=== PATIENT | male | born 2005 | race Caucasian/White ===

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

== ENCOUNTER 2024-06-15 00:48 | Emergency (ER) | payer OTHER, SELFPAY ==
--- NOTE | ~2024-06-15 | XR_ITS ---
Left Hand Technique: PA, oblique, and lateral views were obtained. Clinical History: Laceration, foreign body Findings: No acute fracture or dislocation is seen. Osseous alignment is anatomic. Joint spaces are p reserved. Soft tissues are unremarkable. Impression: Unremarkable left hand. Reviewed, dictated and finalized at location . RMATORY ATTENDANT Impression: Unremarkable left hand.
--- OUTSIDE RECORDS SUMMARY | 2024-06-15 00:50 | XMS_ITS | Clinical Summary ---
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 Gender Identity Not on file Sexual Orientation Not on file Plan of Treatment Health Maintenance Due Date Last Done Comments Annual Physical 2007 Meningococcal B Vaccine (1 o f 2 - Standard) 2020 Hepatitis C 2022 DTaP, Tdap and Td Vaccines ( 1 - Tdap) 2023 Hepatitis B Vaccines (1 of 3 - 19+ 3-dose series) 2023 COVID-19 Vaccine (2 - 2023-2 5 season) 2023 09/10/2020 Influenza Adult (#1) 2024 HPV Vaccines Completed 06/29/2018, 06/23/2017 Meningococcal Vaccine Aged Out No diana daniela eligible based on patient's age to complete this topic Pneumococcal Vaccine: Pediatrics (0 to 5 Years) and At-Risk Patients (6 to 64 Years) Aged Out No longer eligible b ased on patient's age to complete this topic RSV Immunizations Under 20 Months Aged Out No longer eligible b ased on patient's age to complete this topic Insurance [employer] Care Teams Medical Lab Director Relationship Specialty Start Date End Date Maryana Serrano MD [address] [place] [id number] PCP - General PEDIATRICS 01/07/20
--- OUTSIDE RECORDS SUMMARY | 2024-06-15 00:51 | XMS_ITS | Data Portability ---
Author Organization [facility], [address] [facility] ([place]) Address [address] [place] [address] Care Team Providers Care Customer Professional Name Role Phone TARIQ ADAM Primary Care Provider [phone] TARIQ ADAM Referring Provider Assessment Encounter Date Assessment Date Assessment LastModified by Organization Details LastModified Time 10/17/2023 10/17/2023 SUBJECTIVE: The patient presents with concerns about a right nasal lesion. The patient states that he has had this for several years, and it has never really gone away. It does not bleed, drain, or have any other associated symptoms. He does not have any other lesions of this kind. Patient history from today's date has been reviewed, signed, and scanned. All updates have been added to the chart. Please refer to this form for review of the past medical history, family history, surgical history, social history, and review of systems. PHYSICAL EXAM: CONST: Alert and oriented. Looks well, no acute distress. EYES: No icterus. ENT: Oral mucosa pink and moist. On examination, the patient has a 2 mm verrucous appearing lesion of the inferior right naris. RESP: Breathing appears normal. No use of accessory muscles. CV: Extremities are warm and well perfused. GI: Abdomen non-distended. MSK: Head: Atraumatic. Normocephalic. No significant edema normal range of motion. SKIN: No jaundice. No rashes or pruritus on exposed areas. PSYCH: Appropriate mood and affect. NEURO: No speech difficulty. Reviewed pertinent diagnostic tests, lab work, and imaging. These were reviewed with the patient. ASSESSMENT/PLAN: The patient has what I believe to be a verruca vulgaris of the right inferior nasal area. I discussed with him shaving this off and sending it for pathology, and I will cauterize the base which will hopefully resolve the issue. This will be done under local anesthesia in the clinic. I explained to him that he will have a small wound that needs to heal in, and he voiced understanding and was agreeable. We will get him scheduled for this at the earliest opportunity. I appreciate the opportunity to participate in the care of your patients. Should you have any questions or concerns about this evaluation or management please feel free to call my office to discuss them with me. I will be sure to keep you informed of any subsequent developments in care. [facility] [email or web address] Not available 10/17/2023 21:50:40 11/08/2023 11/08/2023 The patient presents for shave biopsy and C&D of lesion at Right ala base. The patient was numbed using 1% lidocaine with epinephrine. Once adequate anesthesia was obtained, the skin was was prepped with Betadine. A tangential shave was taken of the area of concern. Hemostasis was obtained the low power cautery and bacitracin was placed. The patient tolerated the procedure well. The patient was instructed to cleanse the area normally after 24 hrs, but do not soak. The area(s) should be washed daily and vaseline (or equivalent) ointment should be placed to keep this moisturized and prevent a scab from forming. This will heal in and re-epithelialize in 1-4 weeks depending on the depth of the shave. The patient should call with questions or concerns. We will contact him with the pathology results. [email or web address] Not available 11/08/2023 15:58:14 Plan of Treatment Reminders Order Date Submit Date Provider Last Modified By Organization Details Last Modified Time Details Appointments None record ed. Lab None record ed. Referral None record ed. Procedures None record ed. Surgeries None record ed. Imaging None record ed. Medication Orders None record ed. Patient TargetsNo targets recorded. Patient InstructionsNo instructions recorded. Reason for Referral None Reported. Results Created Date Observation Date Name Description Value Unit Range Abnormal Flag Note LastModifiedBy Organization Detail LastModifiedTime 11/08/1911/10/2023 surgi benedicto patho logy study tissue exam biopsy [facility] [address],[place] [address] Ph. Scott Kimball MD, PhD, Medic al Direc tor MICHAELA MAGANA MD Patie nt: YANDY PRINCEWALDEMAR e ID: [id number] Repor t Statu s: Final :1 2003 Case #: [id number] Age: 18 Y Gende r: M Date Colle cted: 11/07 MRN # : [id number] Date Recei chapo: 11/08 Repor jeanne Date: 11/09 FINAL DIAGN OSIS: Skin, right nasal , excis ion: - Sebor rheic kerat osis, infla med and traum atize d ICD-1 0: L82.0 Elect barbara claudio Verif ied by Red Gonzalez MD Elect barbara Signumberto turadia 11/09 17:03 SPECI MEN SOURC E: Skin, right nasal , excis ion GROSS DESCR IPTIO N: The speci men conta iner( s) and requi sitio n have the same patie nt name. Recei chapo in 10% neutr al buffe red forma sixto for forma sixto-f ixed paraf fin-e mbedd ed secti ons label ed exci chad right nasal lesio n is an unori ented 0.4 x 0.2 cm fragm ent of white -meza skin excis ed to a depth of 0.1 cm. A 0.2 x 0.2 x 0.1 cm eleva jeanne brown -meza lesio n is prese nt on the skin surfa ce and is adjac ent to the yesenia n. The speci men is inked , bisec jeanne, and entir tavon submi tted for histo logic study in one casse tte. CLINI BENEDICTO INFOR MATIO N: Skin biops y, right nasal , lesio n. Not Available Hi Only - [facility] Laboratory [facility] [address], [address], 11/10/2023 18:06:22 Result Notes None recorded. Problems Name Problem SNOMED Code Status Onset Date Resolution Date Notes Provider Name and Address Organization Details Recorded Time Lesion of skin of nose 3348666041175 9103 Active 2023 Pema Garcia [facility] 4 11:44:23 Inflamed seborrheic keratosis 530939386 Active 2023 Pema Garcia [facility] 4 09:40:40 Problem Notes None recorded. Medical Equipment None Reported. Medications Name Sig Start Date Stop Date Status Note LastModified by Organization Details LastModified Time mupirocin 2 % topical ointment APPLY SMALL AMOUNT TOPICALLY TO THE AFFECTED AREA 2 TO 3 TIMES DAILY DIRECTED active Not Available Not Available Not Available Vitals Date Recorded Body height Provider Name an d Address Organization Details Last Updated DateTime 10/17/2023 [address] [facility] 10/17/2023 15:38:18 Date Recorded Body height Body mass index (BMI) Body mass index (BMI) Percentile per age and sex Body weight Provider Name and Address Organization Details Last Updated DateTime 11/08/2023 189.23 cm 19.5 kg/m2 9 % 57623.87 g Radha Correia [facility] 11/08/2023 15:43:20 Social History Question Answer Notes LastModified by Organizat ion Details LastModified Time Do You Have An Advance Directive? No [email or web address] Information not available 10/10/2023 What Is Your Level Of Alcohol Consumption? Occasional [email or web address] Information not available 10/10/2023 How Many Times Per Week Do You Consume Alcohol? Less Than 1 Time Per Week [email or web address] Information not available 10/10/2023 What Is Your Level Of Caffeine Consumption? Occasional [email or web address] Information not available 10/10/2023 Are You Currently Employed? Yes [email or web address] Information not available 10/10/2023 What Is Your Occupation? [employer] [email or web address] Information not available 10/10/2023 How Many Times Per Week Do You Exercise? 3-4 Times Per Week [email or web address] Information not available 10/10/2023 Do You Have A Medical Power Of Hotel Assistant General Manager? No [email or web address] Information not available 10/10/2023 What Was The Date Of Your Most Recent Tobacco Screening? 10/17/2023 [email or web address] Information not available 10/10/2023 What Is Your Relationship Status? Single [email or web address] Information not available 10/10/2023 Do You Use Any Illicit Or Recreational Drugs? No [email or web address] Information not available 10/10/2023 Sex: Unknown Functional Status Question Answer Note LastModified by Organization D etails LastModified Time What is your exercise level? Heavy [email or web address] Information not available 10/10/2023 Mental Status None recorded. Family History Relationship Description Onset Age of this Age Resolved Age Notes LastModified by Organization Details LastModified Time Father Asthma [email or web address] Not available 23:17:26 Paternal Grandmother Chronic obstructive pulmonary disease [email or web address] Not available 2023 23:17:26 Paternal Grandfather Diabetes mellitus [email or web address] Not available 2023 23:17:26 Paternal Grandfather Hypercholest erolemia [email or web address] Not available 2023 23:17:26 Maternal Grandmother Hypertensive disorder [email or web address] Not available 2023 23:17:26 Medical History Condition Response Anxiety Disorder N Diabetes N Bleeding Disorder N Attention-deficit Hyperactivity Disorder N High Blood Pressure N Arthritis N Hyperlipidemia N Cancer N Thyroid Problems N Stroke N COPD N Depression N Asthma Y Seizures N Anemia N Heart Disease N Fibromyalgia N Osteoporosis N Kidney Disease N Past Encounters Encounter ID Performer Location Encounter Start Date Encounter Closed Date Diagnosis/Indication Diagnosis SNOMED-CT Code Diagnosis ICD10 Code Diagnosis Note [id number] Casie Murillo MD [address] [facility] ([place]) [address] [place] [phone] 10/17/2023 15:12:55 10/21/2023 06:47:08 Lesion of skin of nose 7373377509 8811281 J34.89 [id number] Casie Murillo MD [facility] ([place]) [address] [place] [address] 11/08/2023 15:19:09 11/08/2023 16:24:34 Inflamed seborrheic keratosis 709034746 L82.0 Health Concerns Section Related Observation LastModified by Organization Landen durán LastModified Time None Recorded Concern Status LastModified by Organization Details LastModified Time None Recorded Advance Directives Directive N: Payers Encounter Date Sequence Insurance Name Policy Number Policy Penaloza Covered Member ID Penaloza Member ID Guarantor Name 10/17/2023 1 [employer] [facility] [employer] [id number] Ray Beard [id number] CELINA Beard 11/08/2023 1 [employer] [facility] [employer] [id number] Ray Beard [id number] CELINA Beard
[2024-06-15 01:06] VITALS: BP 166/85; PULSE 91; RESP 14; TEMP 36.6; O2SAT 98
[2024-06-15 04:00] VITALS: BP 154/85; PULSE 88; RESP 15; O2SAT 99
--- OUTSIDE RECORDS SUMMARY | 2024-06-15 04:44 | XMS_ITS | Clinical Summary ---
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
--- NOTE | 2024-06-15 05:18 | ED_ITS ---
HPI - General Adult General Chief complaint: Skin/Abscess/Foreign Body Stated complaint: knocked over a glass and cut hand Time Seen by Provider: 06/15/24 04:38 History of Present Illness HPI narrative: Patient is a 19-year-old male who presents to the emergency department this evening complaining of left hand laceration. Patient states that he accidentally knocked a glass with his left hand which cut his hand. Patient has 2 superficial lacerations at the base of the thumb and base of the index finger of the left hand. States that he is in college and is up-to-date on all immunizations. Denies any additional symptoms or concerns at this time. Related Data Allergies Allergy/AdvReac Type Severity Reaction Status Date / Time No Known Allergies Allergy Verified 06/15/24 00:49 Review of Systems Review of Systems: All systems are reviewed and are negative unless stated otherwise in the HPI. Exam Narrative: General: Alert, awake, afebrile, in no acute distress. HEENT: PERRL, no rhinorrhea, no post nasal drip, oropharynx clear. Neck: Trachea midline, no JVD, no lymphadenopathy. Cardiovascular: Regular rate and rhythm, no murmurs, rubs or gallops, no peripheral edema. Respiratory: Clear to auscultation bilaterally, no tachypnea, no wheezing, no rhonchi, no rubs, no respiratory distress. Abdomen: Soft, nontender, nondistended, no rebound, no guarding, no peritoneal signs. Musculoskeletal: No joint swelling or deformity, normal muscle tone. Skin: 2 superficial lacerations to the palm of the left hand 1 at the base of the index finger measuring 2 cm and 1 at the base of the thumb measuring 1 cm. Psychiatric: Alert and oriented, normal behavior and judgment for situation. Neurological: Alert and oriented to person, place, and time. Follows all commands. No focal deficits, speech is clear and fluent. Course Vital Signs Vital signs: Vital Signs Temperature 97.9 F 06/15/24 01:06 Pulse Rate 91 06/15/24 01:06 Respiratory Rate 14 06/15/24 01:06 Blood Pressure 166/85 H 06/15/24 01:06 Pulse Oximetry 98 06/15/24 01:06 Oxygen Delivery Room Air 06/15/24 01:06 Temperature 97.9 F 06/15/24 01:06 Pulse Rate 91 06/15/24 01:06 Respiratory Rate 14 06/15/24 01:06 Blood Pressure 166/85 H 06/15/24 01:06 Pulse Oximetry 98 06/15/24 01:06 Oxygen Delivery Room Air 06/15/24 01:06 Procedures Laceration Laceration 1: Date: 06/15/24 Time: 05:21 Site: hand Side (If applicable): left Size (cm): 1 Description: irregular Depth: simple, single layer Local Anesthetic: lidocaine 1% Amount of anesthesia used (mL): 1 Pre-repair: wound explored, irrigated and deep structures intact ====== Skin Level ====== Skin layer closed with: dermabond ====== Subcutaneous Layer ====== ====== Muscle Layer ====== ====== Tendon Layer ====== Laceration 2: Date: 06/15/24 Time: 05:22 Site: hand Side (If applicable): left Size (cm): 2 Description: irregular Depth: simple, single layer Local Anesthetic: lidocaine 1% Amount of anesthesia used (mL): 2 Pre-repair: wound explored, irrigated and deep structures intact ====== Skin Level ====== Skin layer closed with: dermabond ====== Subcutaneous Layer ====== ====== Muscle Layer ====== ====== Tendon Layer ====== Medical Decision Making MDM Narrative Medical decision making narrative: The patient was evaluated by myself in the emergency department. History is obtained from patient who is an independent historian and physical exam was performed. External medical records were reviewed at this time. Imaging studies obtained included left hand x-ray which was independently interpreted by me revealing no acute process, which is pending final radiology interpretation. Differential diagnosis considerations include lacerations, abrasions, retained foreign body. Comorbidities impacting this visit include none. I have evaluated and discussed social determinants of health with the patient that could potentially impact subsequent diagnosis and treatment plans. On repeat assessment of the patient, reevaluation revealed that the patient is doing well and is in no acute distress. Patient symptoms have improved since he arrived to our emergency department. Repeat vital signs were all reviewed and noted to be stable. Differential diagnosis and treatment plan were discussed with the patient at bedside. Patient agrees with discussion and after shared medical decision making agrees with discharge. All questions were answered to the patient's satisfaction. Patient will follow up with his primary care physician within the next week. Patient was provided with strict return precautions and instructed to return to the emergency department if any new or worsening symptoms develop. The patient was discharged in stable condition. Vital Signs Vital Signs: Vital Signs Temperature 97.9 F 06/15/24 01:06 Pulse Rate 91 06/15/24 01:06 Respiratory Rate 14 06/15/24 01:06 Blood Pressure 166/85 H 06/15/24 01:06 Pulse Oximetry 98 06/15/24 01:06 Oxygen Delivery Room Air 06/15/24 01:06 Temperature 97.9 F 06/15/24 01:06 Pulse Rate 91 06/15/24 01:06 Respiratory Rate 14 06/15/24 01:06 Blood Pressure 166/85 H 06/15/24 01:06 Pulse Oximetry 98 06/15/24 01:06 Oxygen Delivery Room Air 06/15/24 01:06 Discharge Plan Discharge Clinical Impression: Laceration, Laceration of hand, left Patient Disposition: Home, Self-Care Condition: Improved Instructions: Antibiotic Form, Laceration (DC) Additional Instructions: Please follow-up with your family doctor within the next 3-5 days. Return to the ED if any new or worsening symptoms develop. Patient Language: Bulgarian Follow-up/Referrals: Zion,CATHIE Pollack [Primary Care Provider] - 1 Week Time of Disposition: 05:19
[2024-06-15 06:09] VITALS: BP 160/81; PULSE 90; RESP 16; O2SAT 100
[2024-06-15 06:10] VITALS: BP 160/81; PULSE 90; RESP 16; O2SAT 100
== END 2024-06-15 06:13 | disposition home or self-care (01) ==
PROVIDERS: Emergency Provider Emergency Medicine; PCP Nurse Practitioner
DX: S61.412A Laceration without foreign body of left hand, initial encounter (principal); W25.XXXA Contact with sharp glass, initial encounter
CPT/HCPCS: 12002; 73130; 99283; J2003

== ENCOUNTER 2024-09-18 12:59 | Emergency (ER) | payer OTHER, SELFPAY ==
[2024-09-18 13:13] VITALS: BP 155/83; PULSE 117; RESP 18; TEMP 36.8; O2SAT 100
--- NOTE | 2024-09-18 13:35 | ED_ITS ---
HPI - General Adult General Chief complaint: Anxiety Stated complaint: Nausea/Anxiety/Fatigue Time Seen by Provider: 09/18/24 13:35 Source: patient, RN notes reviewed and old records reviewed Mode of arrival: ambulatory Limitations: no limitations History of Present Illness HPI narrative: 19-year-old male presents to the [facility] with concerns for anxiety and possible panic attacks. Denies suicidal or homicidal ideations. States that for the last couple of days he has been not feeling right. Denies any drug use or alcohol use. Denies drinking excessive caffeine. States he has had similar episodes where he is just not feeling right, has extreme fatigue, anxiety, gets nauseous. States at times it gets bad that he feels like is going to pass out but does not. Is away from home ,currently in college. States that he is not under any new stressors. States that he has been sleeping his normal. Eating normal. States he had a similar episode in to 2020 wear it just ?went away by itself after about 2 weeks Patient currently denies any chest pain, shortness of breath. States that he just does not feel right. Related Data Home Medications ?Medication ?Instructions ?Recorded ?Confirmed ?Last Taken ?Type No Home Medications 09/18/24 09/18/24 Unknown History Allergies Allergy/AdvReac Type Severity Reaction Status Date / Time No Known Allergies Allergy Verified 09/18/24 13:08 Review of Systems Review of Systems: All systems reviewed & are unremarkable except as noted in HPI and below Constitutional: Constitutional: Reports as per HPI ENT: Reports system reviewed and no additional complaints, except as documented Cardiovascular: Cardiovascular: Reports no additional cardiovascular complaints, Denies chest pain and Denies dyspnea Respiratory: Respiratory: Reports no additional respiratory complaints, Denies chest congestion, Denies cough and Denies dyspnea Musculoskeletal: Musculoskeletal: Reports no additional musculoskeletal complaints Integumentary/Breasts: Skin/Breast: Reports system reviewed and no additional complaints, except as docu Psychiatric: Psychiatric: Reports as per HPI and Reports panic attacks PMFSH Social History Social History Substance use type: does not use Comments At the time of my signature, I reviewed and agree with the nursing past medical, surgical, social, and family history. There is no relevant family history pertinent to the patient complaint. Exam Const: General: cooperative, healthy appearing, comfortable, no acute distress, well developed, alert and well nourished Nutritional Appearance: well nourished Orientation/consciousness: patient oriented x3 Limitations: no limitations HENMT: Head: normal to inspection Eyes: General: appearance normal, both eyes and all related structures Alignment and Position: alignment normal Neck: Neck: normal visual inspection, full ROM, no lymphadenopathy and no meningeal signs Chest: Chest palpation & inspection: normal inspection of the chest Resp: Effort & Inspection: normal respiratory effort and able to speak in complete sentences Auscultation: clear to auscultation bilaterally, no crackles, no rales, no rhonchi and no wheezes Cardio: Rate: regular rate Skin: General skin exam: normal color and no rashes or lesions noted Neuro: General: patient oriented x3, gait normal, moves all extremities and no meningeal signs Cognition (Neuro): normal cognition Speech: normal speech Gait exam (Neuro): Normal gait present Extrem: General: normal to inspection, full ROM, capillary refill normal and normal gait Psych: Appearance: grossly normal and well kempt Mental Status: mental status grossly normal Speech and movement: Normal speech and movement present and Clear speech present Affect: normal affect Attitude: cooperative Course Course Level of Care: Express Care Visit Vital Signs Vital signs: Vital Signs Temperature 98.2 F 09/18/24 13:13 Pulse Rate 117 H 09/18/24 13:13 Respiratory Rate 18 09/18/24 13:13 Blood Pressure 155/83 H 09/18/24 13:13 Pulse Oximetry 100 09/18/24 13:13 Oxygen Delivery Room Air 09/18/24 13:13 Temperature 98.2 F 09/18/24 13:13 Pulse Rate 117 H 09/18/24 13:13 Respiratory Rate 18 09/18/24 13:13 Blood Pressure 155/83 H 09/18/24 13:13 Pulse Oximetry 100 09/18/24 13:13 Oxygen Delivery Room Air 09/18/24 13:13 Reviewed Medical Decision Making MDM Narrative Medical decision making narrative: Patient sitting in exam room. Patient is nontoxic, vitals are stable stable. Patient presents with very vague symptoms, concern for anxiety. Had similar symptoms about 3 years ago Give information for [facility] Patient states he is not suicidal or homicidal. Discussed signs and symptoms to seek treatment in emergency room which he verbalized understanding, states that he is going to try to get home this week and see his primary doctor. Discharge instructions reviewed with patient, as well as provided in writing per nursing staff. The instructions also include specific and strict return/GO TO THE ER as well as f/u information. All questions have been answered, and the patient deny any further questions with discharge and discharge plan. Some parts of this dictation were generated by voice recognition software and may contain typographical and/or grammatical inaccuracies. Differential Diagnosis Differential Diagnosis: Panic attack, anxiety, depression Medical Records Medical records reviewed: Yes I reviewed the external patient's medical records. Vital Signs Vital Signs: Vital Signs Temperature 98.2 F 09/18/24 13:13 Pulse Rate 117 H 09/18/24 13:13 Respiratory Rate 18 09/18/24 13:13 Blood Pressure 155/83 H 09/18/24 13:13 Pulse Oximetry 100 09/18/24 13:13 Oxygen Delivery Room Air 09/18/24 13:13 Temperature 98.2 F 09/18/24 13:13 Pulse Rate 117 H 09/18/24 13:13 Respiratory Rate 18 09/18/24 13:13 Blood Pressure 155/83 H 09/18/24 13:13 Pulse Oximetry 100 09/18/24 13:13 Oxygen Delivery Room Air 09/18/24 13:13 Reviewed Lab Data Lab results reviewed: Yes I reviewed the patient's lab results. Labs: Reviewed Critical Care Time Critical Care Time Critical Care Time: No Discharge Plan Discharge Clinical Impression: Acute anxiety Patient Disposition: Home Condition: Stable Instructions: Panic Disorder (ED), Anxiety (ED) Additional Instructions: Please follow-up with primary care provider soon as possible. Information for [employer] phone numbers have been given to you If you develop worsening symptoms please go to the emergency room for further evaluation, testing and treatment Patient Language: Danish Prescriptions: No Action No Home Medications Follow-up/Referrals: PHYSICIAN,ASSOCIATE FINANCIAL ANALYST [Primary Care Provider] - Time of Disposition: 14:02
== END 2024-09-18 14:04 | disposition home or self-care (01) ==
PROVIDERS: Emergency Provider Nurse Practitioner
DX: F41.9 Anxiety disorder, unspecified (principal)
CPT/HCPCS: 99211; G0463